=== PATIENT | female | born 1930 | race Hispanic/Latino ===

== ENCOUNTER → 2017-09-12 | Outpatient (CLI) | payer MEDICARE ==
[~2017-09-12] MED LIST: ASPI-1197 PO; CETI10TA57 PO; CILO50TA PO; CLOP75TA14 PO; FLUT12AE IH; FLUT15.88 NS; INHALER IH; LINA1TAB5 PO; MONT10TA24 PO; OLME1TAB7 PO; OLOP5DRO14 NS; PANT40TA PO; PRAV10TA39 PO; TRAM50TA4 PO
== END | disposition home or self-care (01) ==
LOC: SHCH 08:54
PROVIDERS: ATTEND Internal Medicine Cardiovascular Disease
DX: I71.4 Abdominal aortic aneurysm, without rupture (principal)
CPT/HCPCS: 93978

== ENCOUNTER → 2017-10-01 | Outpatient (CLI) | payer MEDICARE ==
[~2017-10-01] MED LIST changes: +IOPAMIDOL-370 100 ML VIAL IV ONE; +ISOVUE-370 50ML VIAL IV ONE
== END ==
LOC: OIH 08:52
PROVIDERS: ATTEND Internal Medicine Cardiovascular Disease
DX: I71.4 Abdominal aortic aneurysm, without rupture (principal); I70.203 Unspecified atherosclerosis of native arteries of extremities, bilateral legs
CPT/HCPCS: 75635; Q9967 ×2

== ENCOUNTER 2018-01-03 10:04 | Emergency (ER) | payer MEDICARE ==
[~2018-01-03 10:04] MED LIST changes: -IOPAMIDOL-370 100 ML VIAL IV ONE; -ISOVUE-370 50ML VIAL IV ONE
[2018-01-03 10:33] LABS: BASOPHILS % (AUTO) 0.8 % (0.0-5.0); EOSINOPHILS % (AUTO) 2.2 % (0.0-8.0); HEMATOCRIT 36.6 % (36-48); MEAN CORPUSCULAR HGB CONC 34.4 g/dL (32.0-36.0); MONOCYTES % (AUTO) 7.6 % (3.0-13.0); NEUTROPHILS % (AUTO) 70.4 % (40.0-77.0); PLATELET COUNT (AUTO) 229 K/uL (130-400); RED BLOOD CELL COUNT(AUTO) 3.94 MIL/uL (4.00-5.50); RED CELL DISTRIBUTION WIDTH 13.8 % (11.0-15.5); WHITE BLOOD COUNT (AUTO) 8.2 K/uL (4.8-10.8)
[2018-01-03 10:33] LABS: APPEARANCE,URINE Clear (CLEAR); BILIRUBIN,URINE Negative (NEGATIVE); COLOR,URINE Yellow (YELLOW); GLUCOSE, URINE (UA) >=1000 mg/dL (NEGATIVE); KETONES,URINE Negative (NEGATIVE); LEUKOCYTE ESTERASE ,URINE Negative (NEGATIVE); NITRATE,URINE Negative (NEGATIVE); OCCULT BLOOD,URINE Negative (NEGATIVE); PH,URINE 5.5 (5.0-8.0); PROTEIN,URINE Negative (NEGATIVE); UROBILINOGEN,URINE 0.2 mg/dL (0.2-1.0)
[2018-01-03] MEDS ORDERED: SODIUM CHLORIDE 0.9% 1000ML 1,000 ML IV ONE (10:35)
[2018-01-03 10:49] LABS: ALBUMIN 3.6 g/dL (3.5-5.0); BILIRUBIN,TOTAL 0.5 mg/dL (0.2-1.0); CREATININE 1.5 mg/dL (0.5-1.5); POTASSIUM 4.3 mmol/L (3.5-5.1); TOTAL PROTEIN, SERUM 7.7 g/dL (6.0-8.3)
[2018-01-03 10:55] LABS: BACTERIA,URINE Rare /HPF (None Seen); RBC,URINE 0-1 /HPF (0-1); SQUAMOUS EPITHELIAL CELL,UR Rare /HPF (0-2); WBC,URINE 0-1 /HPF (0-1)
[2018-01-03] MEDS ORDERED: INSULIN HUMULIN R 100 UNIT/ML 3ML ONE (11:12)
[2018-01-03] MEDS ORDERED: ACETAMINOPHEN 325 MG TAB ONE (13:27)
== END 2018-01-03 14:09 | disposition home or self-care (01) ==
LOC: EDH 10:04
DX: E11.65 Type 2 diabetes mellitus with hyperglycemia (principal); E78.5 Hyperlipidemia, unspecified; I10 Essential (primary) hypertension; Z88.6 Allergy status to analgesic agent
CPT/HCPCS: 36415; 80053; 81001; 82948; 85025; 96361; 96374; 99284; J1815; J7030

== ENCOUNTER 2018-01-09 14:46 | Emergency (ER) | payer MEDICARE ==
[2018-01-09 15:34] LABS: BASOPHILS % (AUTO) 0.9 % (0.0-5.0); EOSINOPHILS % (AUTO) 1.3 % (0.0-8.0); HEMATOCRIT 36.3 % (36-48); LYMPHOCYTES % (AUTO) 18.4 % (21.0-51.0); MEAN CORPUSCULAR HEMOGLOBIN 31.7 pg (27.0-33.0); MEAN CORPUSCULAR HGB CONC 34.2 g/dL (32.0-36.0); MEAN CORPUSCULAR VOLUME 92.5 fL (79-99); NEUTROPHILS % (AUTO) 73.4 % (40.0-77.0); PLATELET COUNT (AUTO) 239 K/uL (130-400); RED BLOOD CELL COUNT(AUTO) 3.92 MIL/uL (4.00-5.50); RED CELL DISTRIBUTION WIDTH 13.3 % (11.0-15.5); WHITE BLOOD COUNT (AUTO) 8.3 K/uL (4.8-10.8)
[2018-01-09] MEDS ORDERED: SODIUM CHLORIDE 0.9% 500ML 500 ML IV ONE (15:34)
[2018-01-09] MEDS ORDERED: INSULIN HUMULIN R 100 UNIT/ML 3ML ONE (15:35)
[2018-01-09 15:53] LABS: ALBUMIN 3.5 g/dL (3.5-5.0); BILIRUBIN,TOTAL 0.4 mg/dL (0.2-1.0); CREATINE KINASE MB 0.8 ng/mL (0.5-3.6); CREATININE 1.7 mg/dL (0.5-1.5); POTASSIUM 4.8 mmol/L (3.5-5.1); TOTAL PROTEIN, SERUM 7.4 g/dL (6.0-8.3)
[2018-01-09] MEDS ORDERED: ACETAMINOPHEN 325 MG TAB ONE (16:10)
[2018-01-09 17:04] LABS: APPEARANCE,URINE Clear (CLEAR); BILIRUBIN,URINE Negative (NEGATIVE); COLOR,URINE Yellow (YELLOW); GLUCOSE, URINE (UA) >=1000 mg/dL (NEGATIVE); KETONES,URINE Negative (NEGATIVE); LEUKOCYTE ESTERASE ,URINE Negative (NEGATIVE); NITRATE,URINE Negative (NEGATIVE); OCCULT BLOOD,URINE Negative (NEGATIVE); PROTEIN,URINE Negative (NEGATIVE); UROBILINOGEN,URINE 0.2 mg/dL (0.2-1.0)
[2018-01-09 17:13] LABS: BACTERIA,URINE Many /HPF (None Seen); RBC,URINE None Seen /HPF (0-1); WBC,URINE 0-1 /HPF (0-1)
[2018-01-09] MEDS ORDERED: PENICILLIN V POTASSIUM 500 MG TABLET ONE (17:36)
== END 2018-01-09 18:41 | disposition home or self-care (01) ==
LOC: EDH 14:46
DX: E11.65 Type 2 diabetes mellitus with hyperglycemia (principal); K05.00 Acute gingivitis, plaque induced; E78.5 Hyperlipidemia, unspecified; I10 Essential (primary) hypertension; Z88.6 Allergy status to analgesic agent
CPT/HCPCS: 36415; 80053; 81001; 82550; 82553; 82948 ×2; 84484; 85025; 85651; 86140; 93005; 96361; 96374; 99285; J1815; J7040

== ENCOUNTER 2018-04-09 19:59 | Emergency (ER) | payer MEDICARE ==
[2018-04-09] MEDS ORDERED: TETANUS/DIPHTHERIA TOXOID [ADULT] 0.5 ML VIAL IM ONE (21:28)
== END 2018-04-09 21:41 | disposition home or self-care (01) ==
LOC: EDH 19:59
DX: S61.216A Laceration without foreign body of right little finger without damage to nail, initial encounter (principal); E11.9 Type 2 diabetes mellitus without complications; E78.5 Hyperlipidemia, unspecified; I10 Essential (primary) hypertension; Z90.49 Acquired absence of other specified parts of digestive tract; Z90.710 Acquired absence of both cervix and uterus; Z98.890 Other specified postprocedural states; Z88.6 Allergy status to analgesic agent; X50.9XXA Other and unspecified overexertion or strenuous movements or postures, initial encounter; Y93.89 Activity, other specified; Y92.89 Other specified places as the place of occurrence of the external cause; Y99.8 Other external cause status
CPT/HCPCS: 73140; 90471; 90714; 99281

== ENCOUNTER → 2018-08-15 | Outpatient (CLI) | payer MEDICARE | END | disposition home or self-care (01) | LOC: SHCH 08:47 | PROVIDERS: ATTEND Internal Medicine Cardiovascular Disease | DX: I71.4 Abdominal aortic aneurysm, without rupture (principal) | CPT/HCPCS: 93978 ==

== ENCOUNTER → 2018-08-21 | Outpatient (CLI) | payer MEDICARE | END | disposition home or self-care (01) | LOC: SHCH 09:02 | PROVIDERS: ATTEND Internal Medicine Cardiovascular Disease | DX: I87.2 Venous insufficiency (chronic) (peripheral) (principal); I73.9 Peripheral vascular disease, unspecified; R60.9 Edema, unspecified | CPT/HCPCS: 93925; 93970 ==

== ENCOUNTER 2018-08-29 14:39 | Emergency (ER) | payer MEDICARE ==
[2018-08-29 15:35] LABS: BASOPHILS % (AUTO) 1.1 % (0.0-5.0); HEMATOCRIT 35.3 % (36-48); LYMPHOCYTES % (AUTO) 18.7 % (21.0-51.0); MEAN CORPUSCULAR HEMOGLOBIN 31.1 pg (27.0-33.0); MEAN CORPUSCULAR VOLUME 94.2 fL (79-99); MONOCYTES % (AUTO) 6.7 % (3.0-13.0); NEUTROPHILS % (AUTO) 70.5 % (40.0-77.0); PLATELET COUNT (AUTO) 207 K/uL (130-400); RED BLOOD CELL COUNT(AUTO) 3.75 MIL/uL (4.00-5.50); RED CELL DISTRIBUTION WIDTH 13.3 % (11.0-15.5); WHITE BLOOD COUNT (AUTO) 7.1 K/uL (4.8-10.8)
[2018-08-29 15:43] LABS: CREATININE 1.7 mg/dL (0.5-1.5); POTASSIUM 4.5 mmol/L (3.5-5.1)
[2018-08-29] MEDS ORDERED: ONDANSETRON HCL 4 MG/2 ML VIAL ONE (15:45)
[2018-08-29] MEDS ORDERED: SODIUM CHLORIDE 0.9% 1000ML 1,000 ML IV ONE (15:45)
[2018-08-29] MEDS ORDERED: MORPHINE SULFATE 4 MG/1ML SYG ONE (15:46)
[2018-08-29 15:48] LABS: ALBUMIN 3.4 g/dL (3.5-5.0); BILIRUBIN,TOTAL 0.5 mg/dL (0.2-1.0); TOTAL PROTEIN, SERUM 7.4 g/dL (6.0-8.3)
[2018-08-29] MEDS ORDERED: CYCLOBENZAPRINE HCL 10 MG TABLET ONE (16:25)
[2018-08-29 17:21] LABS: APPEARANCE,URINE Clear (CLEAR); BILIRUBIN,URINE Negative (NEGATIVE); COLOR,URINE Yellow (YELLOW); GLUCOSE, URINE (UA) TRACE mg/dL (NEGATIVE); KETONES,URINE Negative (NEGATIVE); LEUKOCYTE ESTERASE ,URINE Moderate (NEGATIVE); NITRATE,URINE Negative (NEGATIVE); OCCULT BLOOD,URINE Negative (NEGATIVE); PH,URINE 6.5 (5.0-8.0); PROTEIN,URINE Negative (NEGATIVE); UROBILINOGEN,URINE 0.2 mg/dL (0.2-1.0)
[2018-08-29 17:42] LABS: RBC,URINE 0-1 /HPF (0-1); WBC,URINE 26-50 /HPF (0-1)
[2018-08-29 17:43] LABS: BACTERIA,URINE Moderate /HPF (None Seen); SQUAMOUS EPITHELIAL CELL,UR Rare /HPF (0-2)
== END 2018-08-29 17:55 | disposition home or self-care (01) ==
LOC: EDH 14:39
DX: M62.838 Other muscle spasm (principal); I12.9 Hypertensive chronic kidney disease with stage 1 through stage 4 chronic kidney disease, or unspecified chronic kidney disease; E11.22 Type 2 diabetes mellitus with diabetic chronic kidney disease; N18.9 Chronic kidney disease, unspecified; E78.5 Hyperlipidemia, unspecified; Z87.891 Personal history of nicotine dependence
CPT/HCPCS: 36415; 76775; 80053; 81001; 82550; 85025; 85378; 93005; 93925; 93970; 96374; 96375; 99284; J2270; J2405; J7030

== ENCOUNTER 2018-11-25 19:35 | Emergency (ER) | payer MEDICARE ==
[~2018-11-25 19:35] MED LIST changes: +SODIUM CHLORIDE 0.9% 500ML 500 ML IV ONE
[2018-11-25 20:40] LABS: BASOPHILS % (AUTO) 0.5 % (0.0-5.0); EOSINOPHILS % (AUTO) 1.7 % (0.0-8.0); HEMATOCRIT 37.5 % (36-48); LYMPHOCYTES % (AUTO) 13.3 % (21.0-51.0); MEAN CORPUSCULAR HGB CONC 33.8 g/dL (32.0-36.0); MEAN CORPUSCULAR VOLUME 94.5 fL (79-99); MONOCYTES % (AUTO) 4.8 % (3.0-13.0); NEUTROPHILS % (AUTO) 79.7 % (40.0-77.0); PLATELET COUNT (AUTO) 202 K/uL (130-400); RED BLOOD CELL COUNT(AUTO) 3.97 MIL/uL (4.00-5.50); RED CELL DISTRIBUTION WIDTH 13.7 % (11.0-15.5); WHITE BLOOD COUNT (AUTO) 13.6 K/uL (4.8-10.8)
[2018-11-25 20:57] LABS: CREATININE 1.6 mg/dL (0.5-1.5); POTASSIUM 4.3 mmol/L (3.5-5.1)
[2018-11-25 21:01] LABS: ALBUMIN 3.5 g/dL (3.5-5.0); BILIRUBIN,TOTAL 0.5 mg/dL (0.2-1.0); TOTAL PROTEIN, SERUM 7.7 g/dL (6.0-8.3)
[2018-11-25 21:06] LABS: B-TYPE NATRIURETIC PEPTIDE 14 pg/mL (0-100)
[2018-11-25 21:21] LABS: APPEARANCE,URINE Clear (CLEAR); BILIRUBIN,URINE Negative (NEGATIVE); COLOR,URINE Yellow (YELLOW); GLUCOSE, URINE (UA) 500 mg/dL (NEGATIVE); KETONES,URINE Negative (NEGATIVE); LEUKOCYTE ESTERASE ,URINE Small (NEGATIVE); NITRATE,URINE Negative (NEGATIVE); OCCULT BLOOD,URINE Negative (NEGATIVE); PH,URINE 5.5 (5.0-8.0); PROTEIN,URINE Negative (NEGATIVE); UROBILINOGEN,URINE 0.2 mg/dL (0.2-1.0)
[2018-11-25 21:31] LABS: BACTERIA,URINE Moderate /HPF (None Seen); RBC,URINE 0-1 /HPF (0-1)
[2018-11-25 21:32] LABS: SQUAMOUS EPITHELIAL CELL,UR Rare /HPF (0-2)
[2018-11-25] MEDS ORDERED: SODIUM CHLORIDE 0.9% 1000ML 1,000 ML IV ONE (22:50)
[2018-11-25] MEDS ORDERED: CEFTRIAXONE SODIUM 1 GM ONE (22:51)
== END 2018-11-26 | disposition home or self-care (01) ==
LOC: EDH 19:35
DX: N39.0 Urinary tract infection, site not specified (principal); I71.4 Abdominal aortic aneurysm, without rupture; E11.65 Type 2 diabetes mellitus with hyperglycemia; E78.5 Hyperlipidemia, unspecified; I10 Essential (primary) hypertension; Z88.6 Allergy status to analgesic agent; Z88.1 Allergy status to other antibiotic agents
CPT/HCPCS: 36415; 71045; 74176; 80053; 81001; 82150; 82550; 83690; 83880; 84484; 85025; 87040 ×2; 87077 ×2; 87088; 87186 ×2; 87804 ×2; 93005; 96374; 99285; J0696; J7030; J7040

== ENCOUNTER 2018-12-25 17:24 | Inpatient (IN) | payer MEDICARE | END 2018-12-28 15:00 | disposition home health service (06) | LOC: EDH 17:24 → 4AH 12-26 07:42 → EDHIP 19:40 → 3DH 23:08 | DX: S82.001A Unspecified fracture of right patella, initial encounter for closed fracture (principal); W01.0XXA Fall on same level from slipping, tripping and stumbling without subsequent striking against object, initial encounter; N18.9 Chronic kidney disease, unspecified; E11.22 Type 2 diabetes mellitus with diabetic chronic kidney disease ==

== ENCOUNTER 2019-02-27 14:00 | Observation (INO) | payer MEDICARE ==
[~2019-02-27] VITALS: Ht 147.3 cm; Wt 55.7 kg
[~2019-02-27 14:00] MED LIST changes: +ALBU0.63 IH; +ALBUHFA IH; -CETI10TA57 PO; -CILO50TA PO; -CLOP75TA14 PO; +CLOP75TA32 PO; +CYCL30DR OU; -FLUT12AE IH; -FLUT15.88 NS; +FLUT16H NASAL; +FLUT8AER2 IH; -INHALER IH; +INSU300I3 SQ; -LINA1TAB5 PO; -MONT10TA24 PO; +MULT-1192 PO; -OLME1TAB7 PO; -OLOP5DRO14 NS; -PANT40TA PO; -SODIUM CHLORIDE 0.9% 500ML 500 ML IV ONE
[2019-02-27 15:53] LABS: BASOPHILS % (AUTO) 1.4 % (0.0-5.0); EOSINOPHILS % (AUTO) 2.3 % (0.0-8.0); HEMATOCRIT 39.4 % (36-48); MEAN CORPUSCULAR HEMOGLOBIN 30.5 pg (27.0-33.0); MEAN CORPUSCULAR VOLUME 95.3 fL (79-99); MONOCYTES % (AUTO) 6.5 % (3.0-13.0); NEUTROPHILS % (AUTO) 69.8 % (40.0-77.0); PLATELET COUNT (AUTO) 258 K/uL (130-400); RED BLOOD CELL COUNT(AUTO) 4.14 MIL/uL (4.00-5.50); RED CELL DISTRIBUTION WIDTH 13.5 % (11.0-15.5); WHITE BLOOD COUNT (AUTO) 9.1 K/uL (4.8-10.8)
[2019-02-27 15:59] LABS: CREATININE 1.2 mg/dL (0.5-1.5); POTASSIUM 4.5 mmol/L (3.5-5.1)
[2019-02-27 16:48] VITALS: BP 155/71
[2019-02-27] MEDS ORDERED: AMLO5TAB5 PO (17:00)
[2019-02-27] MEDS ORDERED: CETI10CA5 PO (17:00)
[2019-02-27] MEDS ORDERED: OLME1TAB7 PO (17:00)
[2019-02-27] MEDS ORDERED: MONT10TA21 PO (17:00)
[2019-02-27] MEDS ORDERED: PLETAL PO (17:00)
[2019-02-27] MEDS ORDERED: PANT40TA PO (17:00)
[2019-02-27] MEDS ORDERED: ALBU8.5H8 IH (17:00)
[2019-02-27] MEDS ORDERED: CALC-909 PO (17:00)
--- NOTE | 2019-02-27 17:00 | NUR ---
EKG INFORMED DR. VILLEGAS OF ABNORMAL EKG. NO ORDERS RECEIVED. PROCEED WITH PLANNED PROCEDURE.
[2019-02-28] VITALS (22 sets, daily range): BP systolic 95–146; BP diastolic 53–81
[2019-02-28] MEDS ORDERED: CEFAZOLIN SODIUM 1 GM VIAL IVP ONE (08:00)
[2019-02-28] MEDS ORDERED: SODIUM CHLORIDE 0.9% 1000ML 1,000 ML IV ONE (09:57)
[2019-02-28] MEDS ORDERED: CEFAZOLIN SODIUM 1 GM VIAL ONE ×2 (09:57→12:15)
[2019-02-28] MEDS ORDERED: ROPIVACAINE 0.5% 5MG/ML 30ML IJ ONE ×2 (11:17→11:22)
[2019-02-28] MEDS ORDERED: SUCCINYLCHOLINE 200MG/10ML SYR ONE (11:17)
[2019-02-28] MEDS ORDERED: LIDOCAINE PF 2% 5ML ABBOJECT ONE (11:17)
[2019-02-28] MEDS ORDERED: PROPOFOL 10 MG/ML 20ML VIAL IV ONE (11:18)
[2019-02-28] MEDS ORDERED: FENTANYL CITRATE PF 50 MCG/1 ML 2ML VIAL ONE (11:18)
[2019-02-28] MEDS ORDERED: ROCURONIUM 10MG/1ML SYR 10 MG/ML ML ONE (11:18)
[2019-02-28] MEDS ORDERED: SODIUM CHLORIDE 0.9% 10 ML VIAL ONE (11:59)
[2019-02-28] MEDS ORDERED: PHENYLEPHRINE HCL 10 MG/ML 1ML VIAL IV ONE (12:19)
[2019-02-28] MEDS ORDERED: NEOSTIGMINE 5MG/5ML SYR IV ONE (13:41)
[2019-02-28] MEDS ORDERED: GLYCOPYRROLATE 1 MG/5 ML SYRINGE ONE (13:41)
[2019-02-28] MEDS ORDERED: KETOROLAC TROMETHAMINE 30MG/ML ONE (13:42)
[2019-02-28] MEDS ORDERED: ONDANSETRON HCL 4 MG/2 ML VIAL ONE (13:42)
[2019-02-28] MEDS ORDERED: POTASSIUM CHLORIDE 20MEQ/100ML 100 ML IV PRN (14:15)
[2019-02-28] MEDS ORDERED: KETOROLAC TROMETHAMINE 15MG/ML IV PRN (14:15)
[2019-02-28] MEDS ORDERED: PROMETHAZINE HCL 25 MG/ML 1ML AMPULE IM PRN (14:15)
[2019-02-28] MEDS ORDERED: LIDOCAINE HCL-MPF 1% 2ML VIAL IVP PRN (14:15)
[2019-02-28] MEDS ORDERED: DIPHENHYDRAMINE HCL 25 MG CAPSULE PO PRN (14:15)
[2019-02-28] MEDS ORDERED: POTASSIUM CHLORIDE 10% ELIXIR 20 MEQ/15 ML UDCUP PO PRN (14:15)
[2019-02-28] MEDS ORDERED: CALCIUM CARBONATE 500 MG TABLET PO PRN (14:15)
[2019-02-28] MEDS ORDERED: HYDROCODONE/ACETAMINOPHEN 5/325 MG TAB PO PRN ×2 (14:15)
[2019-02-28] MEDS ORDERED: POTASSIUM CHLORIDE 20 MEQ ERTAB PO PRN (14:15)
[2019-02-28] MEDS ORDERED: TEMAZEPAM 15 MG CAPSULE PO PRN (14:15)
[2019-02-28] MEDS ORDERED: FERROUS FUMARATE 324 MG TABLET PO PRN (14:15)
[2019-02-28] MEDS ORDERED: DiphenhydrAMINE HCL 50 MG/ML VIAL IVP PRN (14:15)
[2019-02-28] MEDS: SODIUM CHLORIDE 0.9% 1000ML 1,000 ML IV SCH ×2 (20:13→23:25)
[2019-02-28] MEDS: CEFAZOLIN SODIUM 1 GM VIAL IVP SCH (20:13)
[2019-02-28] MEDS ORDERED: SUB TO ALBUTEROL 2.5MG/3ML NEBULES PER P&T IH PRN (20:45)
[2019-02-28] MEDS ORDERED: ASPIRIN 81MG TAB.CHEW PO SCH (21:00)
[2019-02-28] MEDS ORDERED: MONTELUKAST SODIUM 10 MG TAB PO SCH (21:00)
[2019-03-01 04:00] VITALS: BP 134/59
[2019-03-01] MEDS: CEFAZOLIN SODIUM 1 GM VIAL IVP SCH ×2 (04:36→11:49)
[2019-03-01 05:07] LABS: HEMATOCRIT 30.7 % (36-48); MEAN CORPUSCULAR HGB CONC 33.3 g/dL (32.0-36.0); PLATELET COUNT (AUTO) 210 K/uL (130-400); RED CELL DISTRIBUTION WIDTH 13.5 % (11.0-15.5); WHITE BLOOD COUNT (AUTO) 12.7 K/uL (4.8-10.8)
[2019-03-01 05:14] LABS: CREATININE 1.1 mg/dL (0.5-1.5); POTASSIUM 4.1 mmol/L (3.5-5.1)
[2019-03-01] MEDS ORDERED: ALBUTEROL SULFATE 0.083% 2.5 MG/3 ML INH IH PRN (06:00)
[2019-03-01 08:00] VITALS: BP 119/46
[2019-03-01] MEDS ORDERED: CLOPIDOGREL BISULFATE 75 MG TAB PO SCH (09:00)
[2019-03-01] MEDS ORDERED: CALCIUM 600 + VITAMIN D 400 TABLET PO SCH (09:00)
[2019-03-01] MEDS ORDERED: VENTOLIN HFA IH PRN (09:00)
[2019-03-01] MEDS ORDERED: INSULIN GLARGINE 100 UNITS/ML 10 ML VIAL SQ SCH (09:00)
[2019-03-01] MEDS ORDERED: AMLODIPINE BESYLATE 5 MG TAB PO SCH (09:00)
[2019-03-01] MEDS ORDERED: PANTOPRAZOLE SODIUM 40 MG TABLET.DR PO SCH (09:00)
[2019-03-01] MEDS ORDERED: POLYETHYLENE GLYCOL 3350 17 GM POWD.PACK PO SCH (09:00)
[2019-03-01] MEDS ORDERED: FLUTICASONE PROPIONATE 50MCG/SPRAY 16 GM BOTTLE NS SCH (09:00)
[2019-03-01] MEDS ORDERED: SALMETEROL IH SCH (09:00)
[2019-03-01] MEDS ORDERED: OLMESARTAN PO SCH (09:00)
[2019-03-01] MEDS ORDERED: FAMOTIDINE 20MG TAB 20 MG TAB PO SCH (09:00)
[2019-03-01] MEDS ORDERED: CILOSTAZOL 50 MG PO SCH (09:00)
[2019-03-01] MEDS ORDERED: Cyclosporine (Restasis) 1 EACH OU SCH (09:00)
[2019-03-01] MEDS ORDERED: FLUTICASONE IH SCH (09:00)
[2019-03-01] MEDS ORDERED: HYDROCHLOROTHIAZIDE PO SCH (09:00)
[2019-03-01] MEDS ORDERED: HYDR-4457 PO (11:26)
[2019-03-01 12:00] VITALS: BP 131/56
[2019-03-01] MEDS ORDERED: PSYLLIUM SEED 1 EACH PACKET PO SCH (12:00)
--- NOTE | 2019-03-01 16:30 | NUR ---
PT D/C WITH TEACH BACK SUCCESSFULLY TO PATIENT AND DAUGHTER DRESSING CHANGE DONE MINIMAL DRAINAGE SOME MINIMAL SWELLING NOTED NO SIGNS OF ACTIVE BLEEDING NOTED NO SIGNS OF INFECTION NOTED "REMOVE ON 03/04/19" WRITTEN ON DRESSING ORDERED BYDR. MALDONADO IV REMOVED, CATHETER INTACT , TIP INTACT PT DENIES SOB OR CHEST PAIN RX GIVEN COPY OF ALL D/C ORDERS BY DR. MALDONADO GIVEN TO PT'S DAUGHTER PT AND FAMILY INSTRUCTED TO CALL SUNDAY FOR FU APPT 03/04/19
[2019-03-01] MEDS ORDERED: Pravastatin Sodium 10 MG PO SCH (21:00)
[2019-03-02] MEDS ORDERED: BISACODYL 5 MG TABLET.DR PO PRN (14:15)
[2019-03-03] MEDS ORDERED: BISACODYL 10 MG SUPP.RECT RC PRN (14:15)
== END 2019-03-01 17:17 | disposition home or self-care (01) ==
LOC: EDSTATUS 14:00 → INTOOBSV 02-28 08:52 → DAHIP 02-28 08:52 → 4AH 02-28 15:54
PROVIDERS: ADMIT Orthopaedic Surgery; ATTEND Orthopaedic Surgery
DX: S86.891D Other injury of other muscle(s) and tendon(s) at lower leg level, right leg, subsequent encounter (principal); I10 Essential (primary) hypertension; E78.5 Hyperlipidemia, unspecified; E11.9 Type 2 diabetes mellitus without complications; K21.9 Gastro-esophageal reflux disease without esophagitis; Z47.89 Encounter for other orthopedic aftercare; Z87.81 Personal history of (healed) traumatic fracture; Z88.5 Allergy status to narcotic agent; Z88.8 Allergy status to other drugs, medicaments and biological substances; Z90.710 Acquired absence of both cervix and uterus; Z95.5 Presence of coronary angioplasty implant and graft; Z87.891 Personal history of nicotine dependence; Z79.899 Other long term (current) drug therapy; X58.XXXD Exposure to other specified factors, subsequent encounter
CPT/HCPCS: 27381; 36415 ×2; 80048 ×2; 82948 ×5; 85025; 85027; 93005; 94640; 94664; 96374; 96375; 96376; 97039 ×2; 97116; 97161; A4344; A4600; A4649 ×4; A4930 ×2; A6223; C1762; G0168; G0378 ×31; G8978; G8979; G8980 ×2; G8981; G8982; G8983 ×2; J0330; J0690 ×5; J1885 ×2; J2001; J2370; J2405; J2704; J2710; J2795 ×2; J3010; J3490; J7030 ×2; L1830

== ENCOUNTER 2019-04-22 19:26 | Emergency (ER) | payer MEDICARE ==
[~2019-04-22 19:26] MED LIST changes: +ALBU8.5H8 IH; +AMLO5TAB5 PO; +CALC-909 PO; +CETI10CA5 PO; +HYDR-4457 PO; +MONT10TA21 PO; +OLME1TAB7 PO; +PANT40TA PO; +PLETAL PO
[2019-04-22] MEDS ORDERED: DiphenhydrAMINE HCL 50 MG/ML VIAL ONE (20:34)
[2019-04-22] MEDS ORDERED: DEXAMETHASONE SOD PHOSPHATE 10MG/ML 1ML VIAL ONE (20:34)
[2019-04-22 20:56] LABS: BASOPHILS % (AUTO) 1.1 % (0.0-5.0); EOSINOPHILS % (AUTO) 2.2 % (0.0-8.0); HEMATOCRIT 36.5 % (36-48); LYMPHOCYTES % (AUTO) 20.3 % (21.0-51.0); MEAN CORPUSCULAR HEMOGLOBIN 31.2 pg (27.0-33.0); MEAN CORPUSCULAR HGB CONC 34.2 g/dL (32.0-36.0); MEAN CORPUSCULAR VOLUME 91.4 fL (79-99); MONOCYTES % (AUTO) 8.7 % (3.0-13.0); NEUTROPHILS % (AUTO) 67.7 % (40.0-77.0); PLATELET COUNT (AUTO) 243 K/uL (130-400); RED BLOOD CELL COUNT(AUTO) 3.99 MIL/uL (4.00-5.50); WHITE BLOOD COUNT (AUTO) 9.8 K/uL (4.8-10.8)
[2019-04-22 20:56] LABS: APPEARANCE,URINE Clear (CLEAR); BILIRUBIN,URINE Negative (NEGATIVE); COLOR,URINE Dark Yellow (YELLOW); GLUCOSE, URINE (UA) 250 mg/dL (NEGATIVE); KETONES,URINE Negative (NEGATIVE); LEUKOCYTE ESTERASE ,URINE Trace (NEGATIVE); NITRATE,URINE Negative (NEGATIVE); OCCULT BLOOD,URINE Negative (NEGATIVE); PH,URINE 6.5 (5.0-8.0); PROTEIN,URINE Negative (NEGATIVE)
[2019-04-22 21:08] LABS: CREATININE 1.2 mg/dL (0.5-1.5); POTASSIUM 3.9 mmol/L (3.5-5.1)
[2019-04-22 21:09] LABS: INR 0.93 (0.85-1.15); PROTHROMBIN TIME 9.8 SEC (9.6-11.6)
[2019-04-22 21:13] LABS: ALBUMIN 3.2 g/dL (3.5-5.0); BILIRUBIN,DIRECT 1.2 mg/dL (0.0-0.3); BILIRUBIN,TOTAL 1.6 mg/dL (0.2-1.0); TOTAL PROTEIN, SERUM 7.5 g/dL (6.0-8.3)
[2019-04-22 21:17] LABS: RBC,URINE 0-1 /HPF (0-1)
[2019-04-22 21:18] LABS: BACTERIA,URINE Rare /HPF (None Seen); SQUAMOUS EPITHELIAL CELL,UR Rare /HPF (0-2)
== END 2019-04-22 23:45 | disposition home or self-care (01) ==
LOC: EDH 19:26
DX: R10.84 Generalized abdominal pain (principal); R21 Rash and other nonspecific skin eruption; I10 Essential (primary) hypertension; E78.5 Hyperlipidemia, unspecified; E11.9 Type 2 diabetes mellitus without complications; Z88.1 Allergy status to other antibiotic agents; Z88.5 Allergy status to narcotic agent
CPT/HCPCS: 36415; 74176; 76705; 80048; 80076; 81001; 82550; 83690; 84484; 85025; 85610; 85730; 93005; 96374; 96375; 99285; J1100; J1200

== ENCOUNTER 2020-02-16 11:14 | Inpatient (IN) | payer MEDICARE ==
[~2020-02-16] VITALS: Ht 149.9 cm; Wt 60.3 kg
[2020-02-16] MEDS ORDERED: CEFTRIAXONE SODIUM 1 GM ONE (11:54)
[2020-02-16 12:34] LABS: BASOPHILS % (AUTO) 0.3 % (0.0-5.0); EOSINOPHILS % (AUTO) 0.4 % (0.0-8.0); HEMATOCRIT 35.8 % (36-48); LYMPHOCYTES % (AUTO) 13.8 % (21.0-51.0); MEAN CORPUSCULAR HEMOGLOBIN 29.8 pg (27.0-33.0); MEAN CORPUSCULAR HGB CONC 33.2 g/dL (32.0-36.0); MEAN CORPUSCULAR VOLUME 89.7 fL (79-99); MONOCYTES % (AUTO) 6.3 % (3.0-13.0); NEUTROPHILS % (AUTO) 78.9 % (40.0-77.0); PLATELET COUNT (AUTO) 131 K/uL (130-400); RED BLOOD CELL COUNT(AUTO) 3.99 MIL/uL (4.00-5.50); RED CELL DISTRIBUTION WIDTH 13.4 % (11.0-15.5)
[2020-02-16 12:40] LABS: INR 0.88 (0.85-1.15); PARTIAL THROMBOPLASTIN TIME 28.9 SEC (26.3-35.5); PROTHROMBIN TIME 9.6 SEC (9.6-11.6)
[2020-02-16 12:47] LABS: CARBON DIOXIDE 25 mmol/L (21-32); CHLORIDE 100 mmol/L (101-111); CREATININE 1.5 mg/dL (0.5-1.5); GLOMERULAR FILTR. RATE CALC 35 mL/min (>60); GLUCOSE,RANDOM 158 mg/dL (70-105); POTASSIUM 5.1 mmol/L (3.5-5.1); SODIUM SERUM 135 mmol/L (136-145); UREA NITROGEN, BLOOD 23 mg/dL (7-18)
[2020-02-16 13:00] LABS: ALANINE AMINOTRANSFERASE 137 U/L (12-78); ALBUMIN 2.9 g/dL (3.5-5.0); ASPARTATE AMINOTRANSFERASE 200 U/L (10-37); BILIRUBIN,TOTAL 0.5 mg/dL (0.2-1.0); CREATINE KINASE, TOTAL 111 U/L (21-232); MYOGLOBIN 181 ng/mL (10-92); TOTAL PROTEIN, SERUM 6.8 g/dL (6.0-8.3); TROPONIN I < 0.04 ng/mL (0.00-0.06)
[2020-02-16] MEDS ORDERED: DEXAMETHASONE SOD PHOSPHATE 4 MG/ML 1ML VIAL ONE (13:35)
[2020-02-16] MEDS ORDERED: ALBUTEROL INHALER 90MCG/INH IH ONE (13:37)
[2020-02-16] MEDS ORDERED: DIPHENHYDRAMINE HCL 25 MG CAPSULE PO PRN (14:00)
[2020-02-16] MEDS ORDERED: GLUCAGON 1MG KIT 1 MG ML IM PRN (14:00)
[2020-02-16] MEDS ORDERED: ACETAMINOPHEN-CODEINE 300/30MG TAB PO PRN (14:00)
[2020-02-16] MEDS ORDERED: ACETAMINOPHEN 325 MG TAB PO PRN (14:00)
[2020-02-16] MEDS: AZITHROMYCIN 500MG+NS 250ML 250 ML IV SCH (14:00)
[2020-02-16] MEDS ORDERED: LACTULOSE 20 GM/30 ML UDCUP PO PRN (14:00)
[2020-02-16] MEDS ORDERED: DEXTROSE 50%-WATER 50 ML DISP.SYRIN IV PRN (14:00)
[2020-02-16] MEDS ORDERED: ONDANSETRON HCL 4 MG/2 ML VIAL IV PRN (14:00)
[2020-02-16 14:03] LABS: APPEARANCE,URINE Clear (CLEAR); BILIRUBIN,URINE Negative (NEGATIVE); COLOR,URINE Dark Yellow (YELLOW); GLUCOSE, URINE (UA) Negative (NEGATIVE); KETONES,URINE Negative (NEGATIVE); LEUKOCYTE ESTERASE ,URINE Moderate (NEGATIVE); NITRATE,URINE Positive (NEGATIVE); OCCULT BLOOD,URINE Negative (NEGATIVE); PROTEIN,URINE Negative (NEGATIVE)
[2020-02-16 14:21] LABS: BACTERIA,URINE Few /HPF (None Seen); RBC,URINE 0-1 /HPF (0-1)
[2020-02-16 14:22] LABS: SQUAMOUS EPITHELIAL CELL,UR Few /HPF (0-2)
[2020-02-16] MEDS ORDERED: LEVOFLOXACIN 500 MG/D5W 100 ML 100 ML ONE (14:30)
[2020-02-16] MEDS: CEFTRIAXONE SODIUM 1 GM IV SCH (15:00)
[2020-02-16] MEDS ORDERED: AZITHROMYCIN 500MG+NS 250ML 250 ML IV ONE (15:24)
[2020-02-16] MEDS: INSULIN HUMULIN R 100 UNIT/ML 3ML SQ SCH ×2 (16:30→21:00)
[2020-02-16] MEDS: PHARMACY COMMUNICATION MISC SCH ×5 (16:30→23:08)
[2020-02-16] MEDS ORDERED: ENOXAPARIN SODIUM 60 MG/0.6 ML SQ SCH (18:00)
[2020-02-16 22:10] VITALS: BP 95/49
[2020-02-17] VITALS: BP 106/60
[2020-02-17] MEDS: PHARMACY COMMUNICATION MISC SCH ×4 (02:30→08:30)
[2020-02-17] MEDS: BENZONATATE 100 MG CAPSULE PO PRN (03:00)
[2020-02-17 04:00] VITALS: BP 107/57
[2020-02-17 04:33] LABS: HEMATOCRIT 36.6 % (36-48); MEAN CORPUSCULAR HEMOGLOBIN 29.4 pg (27.0-33.0); MEAN CORPUSCULAR HGB CONC 32.5 g/dL (32.0-36.0); MEAN CORPUSCULAR VOLUME 90.4 fL (79-99); RED BLOOD CELL COUNT(AUTO) 4.05 MIL/uL (4.00-5.50); RED CELL DISTRIBUTION WIDTH 13.3 % (11.0-15.5)
[2020-02-17 04:43] LABS: CREATININE 1.5 mg/dL (0.5-1.5); PHOSPHORUS 3.7 mg/dL (2.5-4.9); POTASSIUM 5.6 mmol/L (3.5-5.1)
[2020-02-17] MEDS: INSULIN HUMULIN R 100 UNIT/ML 3ML SQ SCH ×4 (05:43→20:32)
--- NOTE | 2020-02-17 06:24 | NUR ---
Pt rested throughout night following admission process; pt was SOB with exertion and while talking; bedside commode placed for pts convenience and pt placed on continuous pulse ox; pt sat between 98-100% on 3L O2 via nasal canula at rest however while trying to use bedside commode, pts sats dropped to the low 80s; pt educated on resting on edge of bed before attempting to stand and slow deep breaths encouraged; pt received Tesslon perles for cough; pt is currently resting in bed with eyes closed; no distress noted
[2020-02-17 07:00] VITALS: BP 133/59
[2020-02-17] MEDS: FAMOTIDINE/PF 20 MG/2 ML VIAL IV SCH (08:49)
[2020-02-17] MEDS: DEXAMETHASONE 4 MG TAB PO SCH (08:50)
[2020-02-17] MEDS ORDERED: ENOXAPARIN SODIUM 40 MG/0.4 ML SYRINGE SQ SCH (09:00)
[2020-02-17] MEDS ORDERED: LEVO5TAB13 PO (10:19)
--- NOTE | 2020-02-17 10:45 | NUR ---
POTASSIUM AND HOME MEDS Dylan SIFUENTES NP FOR DR. LR INFORMED OF POTASSIUM 5.6 AND THAT HOME MEDS ENTERED AND PENDING TO BE RESUMED.
[2020-02-17] MEDS: ENOXAPARIN SODIUM 60 MG/0.6 ML SQ SCH (10:50)
[2020-02-17 11:00] VITALS: BP_SYST 111; BP_SYST 124; BP_DIAS 54; BP_DIAS 61
--- NOTE | 2020-02-17 12:41 | NUR ---
CHART CHECK COMPLETED. Pt IS AN 89 Y.O. FEMALE ADMITTED SECONDARY TO COVID19. Pt HAS A PAST MEDICAL HISTORY SIGNIFICANT FOR DM, RA, ALLERGIES, CARDIAC. Pt CURRENTLY ON REGULAR TEXTURE, THIN LIQUIDS (CONSISTENT CARB). Pt ON 3L O2 NC. PLEASE REQUEST SKILLED SPEECH/SWALLOW EVALUATION IF Pt PRESENTS WITH +S/S OF ASPIRATION DURING P.O. OF COUGH RESPONSE, WET VOCAL QUALITY OR THROAT CLEAR. Addendum: 02/17/20 at 1245 by RENNY MARINA, SPT ST Amended: Links added.
[2020-02-17] MEDS: AZITHROMYCIN 500MG+NS 250ML 250 ML IV SCH (14:14)
[2020-02-17] MEDS: CEFTRIAXONE SODIUM 1 GM IV SCH (14:15)
--- NOTE | 2020-02-17 14:32 | NUR ---
RADHA NOTE/IA UNABLE TO MEET WITH PATIENT IN ROOM, NEXT OF KIN CALLED, GERSON RESENDEZ. PER DAUGHTER, PATIENT LIVES WITH HER AND SON, KARLY RESENDEZ. PER DAUGHTER, HER BROTHER, KARLY, LIVES IN THE HOME BUT DOES NOT KNOW TOO MUCH ABOUT PATIENT AND WOULD RATHER INFORMATION BE PASSED TO HER THAN BROTHER. ALSO STATES, PATIENT IS INDEPENDENT WITH ADLS, HAS USE OF ROLLATOR WALKER, NO PROVIDER SERVICES AND FEELS SAFE FOR PATIENT TO BE DISCHARGED BACK HOME. Addendum: 02/17/20 at 1440 by ROCIO ZARATE RN CM Amended: Links added.
[2020-02-17 16:00] VITALS: BP 133/60
[2020-02-17 17:16] LABS: ABG BASE EXCESS -1.8 mmol/L (-2.0-3.0); ABG HCO3 21.4 mmol/L (21.0-28.0); ABG OXYGEN SATURATION 87.5 % (95.0-99.0); ABG PCO2 33 mmHg (32-45)
[2020-02-17 20:20] VITALS: BP 114/63
[2020-02-18 00:20] VITALS: BP 118/56
[2020-02-18 04:20] VITALS: BP 111/49
[2020-02-18 04:24] LABS: BASOPHILS % (AUTO) 0.1 % (0.0-5.0); HEMATOCRIT 37.3 % (36-48); LYMPHOCYTES % (AUTO) 8.4 % (21.0-51.0); MEAN CORPUSCULAR HEMOGLOBIN 29.6 pg (27.0-33.0); MEAN CORPUSCULAR HGB CONC 33.2 g/dL (32.0-36.0); MONOCYTES % (AUTO) 6.5 % (3.0-13.0); NEUTROPHILS % (AUTO) 84.6 % (40.0-77.0); PLATELET COUNT (AUTO) 178 K/uL (130-400); RED BLOOD CELL COUNT(AUTO) 4.19 MIL/uL (4.00-5.50); RED CELL DISTRIBUTION WIDTH 13.2 % (11.0-15.5); WHITE BLOOD COUNT (AUTO) 9.6 K/uL (4.8-10.8)
[2020-02-18 04:41] LABS: ALBUMIN 2.7 g/dL (3.5-5.0); BILIRUBIN,TOTAL 0.7 mg/dL (0.2-1.0); CREATININE 1.3 mg/dL (0.5-1.5); MAGNESIUM 2.2 mg/dL (1.80-2.40); PHOSPHORUS 3.5 mg/dL (2.5-4.9); POTASSIUM 5.1 mmol/L (3.5-5.1); TOTAL PROTEIN, SERUM 6.8 g/dL (6.0-8.3)
[2020-02-18] MEDS: INSULIN HUMULIN R 100 UNIT/ML 3ML SQ SCH ×5 (05:40→20:58)
--- NOTE | 2020-02-18 06:14 | NUR ---
Pt rested throughout night after receiving night meds and a bed bath; pt woke to use bedside commode, O2 sats dropped to 77% and pt recovered back to 98-100% once back in bed and resting; pt is on 5L O2 via nasal cannula; lab called @0546 with pts D-Dimer result = [id number]; [employer] human [employer] professional physician paged at [phone]; pending response at this time. YADY Fraser
[2020-02-18 07:00] VITALS: BP 131/47
[2020-02-18] MEDS: FAMOTIDINE/PF 20 MG/2 ML VIAL IV SCH (09:03)
[2020-02-18] MEDS: ENOXAPARIN SODIUM 60 MG/0.6 ML SQ SCH (09:04)
[2020-02-18] MEDS: DEXAMETHASONE 4 MG TAB PO SCH (09:06)
[2020-02-18 11:00] VITALS: BP 113/64
[2020-02-18] MEDS: CEFTRIAXONE SODIUM 1 GM IV SCH (14:03)
[2020-02-18] MEDS: AZITHROMYCIN 500MG+NS 250ML 250 ML IV SCH (14:03)
[2020-02-18 16:00] VITALS: BP 117/67
[2020-02-18 20:12] VITALS: BP 120/59
--- NOTE | 2020-02-18 21:10 | NUR ---
pt requested to use bedside commode; pt de-sats to the 70s when attempting to use beside commode; pt resting in bed (@2030) and sats in mid-80s; pt stated she was on the phone with her daughter; O2 at 5L and increased to 8-9L without change; NRB placed/ 15L and pts sats at 98-99%; pt instructed to stay on bedrest; pts brief was changed and O2 reassessed, O2 sats maintaining 97-98% on NRB; pt placed back on nasal cannula at 7L and O2 sats maintaining at 91% at this time; no distress noted. Evelio, RN
--- NOTE | 2020-02-18 23:48 | NUR ---
Rounding on pt and pulse ox beeping, pts O2 sats at 84% on 7L nasal cannula and pt stating she feels SOB; O2 increased to 10L with no change; pt placed on NRB /15L and O2 sats maintaining at 95-96%; pts brief was changed and reassessed; no distress noted at this time. Evelio, RN
[2020-02-19 00:12] VITALS: BP 133/75
--- NOTE | 2020-02-19 01:10 | NUR ---
Pt satting 100% on NRB; RT rounded and stated pt could decrease to venti-mask at 50%; vent-mask applied at this time and pt is maintaining O2 sats at 94%; no distress noted at this time. Evelio, RN
--- NOTE | 2020-02-19 02:20 | NUR ---
Pt satting 100% on venti-mask @50% and 15L; decreased venti-mask at 35% and 9L, pt is maintaining O2 sats at 97%; no distress noted at this time. Evelio RN
[2020-02-19 03:54] LABS: ABG BASE EXCESS 1.1 mmol/L (-2.0-3.0); ABG HCO3 24.1 mmol/L (21.0-28.0); ABG OXYGEN SATURATION 90.3 % (95.0-99.0); ABG PCO2 34 mmHg (32-45)
[2020-02-19 04:12] VITALS: BP 128/68
[2020-02-19 04:54] LABS: BASOPHILS % (AUTO) 0.2 % (0.0-5.0); LYMPHOCYTES % (AUTO) 8.4 % (21.0-51.0); MEAN CORPUSCULAR HEMOGLOBIN 29.7 pg (27.0-33.0); MEAN CORPUSCULAR HGB CONC 33.5 g/dL (32.0-36.0); MEAN CORPUSCULAR VOLUME 88.7 fL (79-99); MONOCYTES % (AUTO) 6.8 % (3.0-13.0); NEUTROPHILS % (AUTO) 83.8 % (40.0-77.0); PLATELET COUNT (AUTO) 241 K/uL (130-400); RED BLOOD CELL COUNT(AUTO) 4.17 MIL/uL (4.00-5.50); RED CELL DISTRIBUTION WIDTH 13.2 % (11.0-15.5); WHITE BLOOD COUNT (AUTO) 13.3 K/uL (4.8-10.8)
[2020-02-19] MEDS: INSULIN HUMULIN R 100 UNIT/ML 3ML SQ SCH ×4 (05:36→21:17)
[2020-02-19 05:55] LABS: ALBUMIN 2.9 g/dL (3.5-5.0); BILIRUBIN,TOTAL 0.4 mg/dL (0.2-1.0); CREATININE 1.3 mg/dL (0.5-1.5); MAGNESIUM 2.1 mg/dL (1.80-2.40); PHOSPHORUS 3.3 mg/dL (2.5-4.9); POTASSIUM 4.4 mmol/L (3.5-5.1)
--- NOTE | 2020-02-19 07:00 | NUR ---
Pt satting 97% on venti-mask @50% and 15L; pt desat to 84% on 35% at 9L and had to be increased; pt is currently resting in bed; no distress noted. Evelio RN
[2020-02-19 08:03] VITALS: BP 134/74
[2020-02-19] MEDS: FAMOTIDINE/PF 20 MG/2 ML VIAL IV SCH (09:06)
[2020-02-19] MEDS: ENOXAPARIN SODIUM 60 MG/0.6 ML SQ SCH (09:07)
[2020-02-19] MEDS: DEXAMETHASONE 4 MG TAB PO SCH (09:07)
[2020-02-19 11:38] VITALS: BP 134/70
[2020-02-19] MEDS: AZITHROMYCIN 500MG+NS 250ML 250 ML IV SCH (13:38)
[2020-02-19] MEDS: CEFTRIAXONE SODIUM 1 GM IV SCH (14:04)
[2020-02-19 16:59] VITALS: BP 137/18
[2020-02-19 20:12] VITALS: BP 141/75
[2020-02-19] MEDS: BENZONATATE 100 MG CAPSULE PO PRN (21:03)
[2020-02-20 00:12] VITALS: BP 150/79
[2020-02-20 03:11] LABS: ABG BASE EXCESS 1.5 mmol/L (-2.0-3.0); ABG HCO3 24.7 mmol/L (21.0-28.0); ABG OXYGEN SATURATION 91.8 % (95.0-99.0); ABG PCO2 35 mmHg (32-45)
[2020-02-20 04:12] VITALS: BP 149/75
[2020-02-20 05:38] LABS: BASOPHILS % (AUTO) 0.2 % (0.0-5.0); HEMATOCRIT 36.5 % (36-48); LYMPHOCYTES % (AUTO) 9.8 % (21.0-51.0); MEAN CORPUSCULAR HEMOGLOBIN 29.5 pg (27.0-33.0); MEAN CORPUSCULAR HGB CONC 33.4 g/dL (32.0-36.0); MEAN CORPUSCULAR VOLUME 88.2 fL (79-99); MONOCYTES % (AUTO) 8.4 % (3.0-13.0); NEUTROPHILS % (AUTO) 80.5 % (40.0-77.0); PLATELET COUNT (AUTO) 249 K/uL (130-400); RED BLOOD CELL COUNT(AUTO) 4.14 MIL/uL (4.00-5.50); WHITE BLOOD COUNT (AUTO) 12.3 K/uL (4.8-10.8)
[2020-02-20 05:58] LABS: ALBUMIN 2.7 g/dL (3.5-5.0); BILIRUBIN,TOTAL 0.5 mg/dL (0.2-1.0); CREATININE 1.1 mg/dL (0.5-1.5); MAGNESIUM 1.8 mg/dL (1.80-2.40); PHOSPHORUS 3.4 mg/dL (2.5-4.9); POTASSIUM 4.1 mmol/L (3.5-5.1); TOTAL PROTEIN, SERUM 6.9 g/dL (6.0-8.3)
[2020-02-20] MEDS: INSULIN HUMULIN R 100 UNIT/ML 3ML SQ SCH ×4 (06:16→21:21)
[2020-02-20 08:00] VITALS: BP 133/71
[2020-02-20] MEDS: DEXAMETHASONE 4 MG TAB PO SCH (09:26)
[2020-02-20] MEDS: FAMOTIDINE/PF 20 MG/2 ML VIAL IV SCH (09:27)
[2020-02-20] MEDS: ENOXAPARIN SODIUM 60 MG/0.6 ML SQ SCH (09:27)
[2020-02-20 12:08] VITALS: BP 137/68
[2020-02-20 14:00] VITALS: BP 147/84
[2020-02-20] MEDS: AZITHROMYCIN 500MG+NS 250ML 250 ML IV SCH (14:31)
[2020-02-20] MEDS: CEFTRIAXONE SODIUM 1 GM IV SCH (14:32)
[2020-02-20 20:00] VITALS: BP 139/78
[2020-02-21] VITALS: BP 138/80
[2020-02-21 04:00] VITALS: BP 144/77
[2020-02-21 04:20] LABS: ABG BASE EXCESS 0.5 mmol/L (-2.0-3.0); ABG HCO3 23.4 mmol/L (21.0-28.0); ABG OXYGEN SATURATION 93.5 % (95.0-99.0); ABG PCO2 33 mmHg (32-45)
[2020-02-21 04:44] LABS: BASOPHILS % (AUTO) 0.1 % (0.0-5.0); EOSINOPHILS % (AUTO) 0.2 % (0.0-8.0); LYMPHOCYTES % (AUTO) 10.9 % (21.0-51.0); MEAN CORPUSCULAR HEMOGLOBIN 29.5 pg (27.0-33.0); MEAN CORPUSCULAR HGB CONC 33.9 g/dL (32.0-36.0); MONOCYTES % (AUTO) 9.8 % (3.0-13.0); NEUTROPHILS % (AUTO) 78.4 % (40.0-77.0); PLATELET COUNT (AUTO) 232 K/uL (130-400); RED BLOOD CELL COUNT(AUTO) 4.14 MIL/uL (4.00-5.50); RED CELL DISTRIBUTION WIDTH 12.7 % (11.0-15.5); WHITE BLOOD COUNT (AUTO) 11.3 K/uL (4.8-10.8)
[2020-02-21 05:18] LABS: ALBUMIN 2.7 g/dL (3.5-5.0); BILIRUBIN,TOTAL 0.5 mg/dL (0.2-1.0); CREATININE 1.1 mg/dL (0.5-1.5); MAGNESIUM 2.6 mg/dL (1.80-2.40); PHOSPHORUS 3.2 mg/dL (2.5-4.9); TOTAL PROTEIN, SERUM 6.8 g/dL (6.0-8.3)
[2020-02-21] MEDS: INSULIN HUMULIN R 100 UNIT/ML 3ML SQ SCH ×3 (05:58→18:18)
[2020-02-21 09:19] VITALS: BP 129/75
[2020-02-21] MEDS: DEXAMETHASONE 4 MG TAB PO SCH (09:34)
[2020-02-21] MEDS: FAMOTIDINE/PF 20 MG/2 ML VIAL IV SCH (09:34)
[2020-02-21] MEDS: ENOXAPARIN SODIUM 60 MG/0.6 ML SQ SCH (09:37)
[2020-02-21 12:32] VITALS: BP 118/66
[2020-02-21] MEDS: CEFTRIAXONE SODIUM 1 GM IV SCH (13:35)
[2020-02-21] MEDS: AZITHROMYCIN 500MG+NS 250ML 250 ML IV SCH (13:35)
[2020-02-21] MEDS ORDERED: DEXA6TAB PO (15:28)
--- NOTE | 2020-02-21 16:00 | NUR ---
matheus note spoke to pt and updated on plan for dc today, per md orders, informed she will need oxygen at home, as ordered by md clifford via [facility], and hospital will provide a loaner concentrator, and a portable tank to get her home. informed that oxygen has been ordered through [facility] with her own insurance and they are backlogged so they will process her oxygen order and deliver to her home when ready, at that time when she receives her own oxygen then she can return the concentrator loaner back to hospital. pt verbalizes understanding. Addendum: 02/21/20 at 1929 by NAVNEET LAWRENCE CM choice letter obtained and referral faxed clinical information to [facility], fax [phone].# [phone]
[2020-02-21 18:37] VITALS: BP 129/68
--- NOTE | 2020-02-21 19:11 | NUR ---
Patient cleared by primary team to dc home. DC information reviewed by pt and daughter, both parties verbalized understanding. Home O2 given to patient and will be returned this evening.
== END 2020-02-21 19:39 | disposition home or self-care (01) | DRG 177 ==
LOC: EDH 11:14 → EDHIP 13:59 → 4BH 21:56
PROVIDERS: ADMIT Internal Medicine Pulmonary Disease; ATTEND Internal Medicine Pulmonary Disease
DX: U07.1 COVID-19 (principal); J12.89 Other viral pneumonia; N39.0 Urinary tract infection, site not specified; E44.0 Moderate protein-calorie malnutrition; E87.5 Hyperkalemia; I10 Essential (primary) hypertension; E11.9 Type 2 diabetes mellitus without complications; Z79.02 Long term (current) use of antithrombotics/antiplatelets; Z88.0 Allergy status to penicillin; Z88.5 Allergy status to narcotic agent; Z79.899 Other long term (current) drug therapy; Z68.26 Body mass index [BMI] 26.0-26.9, adult
CPT/HCPCS: 36415; 36600; 71045; 80048; 80053; 81001; 82550; 82803; 82948; 83036; 83605; 83735; 83874; 84100; 84145; 84484; 85025; 85027; 85378; 85610; 85730; 86900; 86901; 87040; 87077; 87088; 87186; 87426; 93005; 93970; 94760; 97039; 99291; G0378; J0456; J0696; J1100; J1650; J1815; J1956; J3490; J8540

== ENCOUNTER → 2020-08-18 | Outpatient (CLI) | payer MEDICARE ==
[~2020-08-18] MED LIST changes: +DEXA6TAB PO; -HYDR-4457 PO; -INSU300I3 SQ; +LEVO5TAB13 PO; -PLETAL PO; -TRAM50TA4 PO
== END | disposition home or self-care (01) ==
LOC: SHCH 07:40
PROVIDERS: ATTEND Internal Medicine Cardiovascular Disease
DX: I71.4 Abdominal aortic aneurysm, without rupture (principal); I73.9 Peripheral vascular disease, unspecified; Z95.820 Peripheral vascular angioplasty status with implants and grafts
CPT/HCPCS: 93925; 93978

== ENCOUNTER 2020-09-02 10:23 | Observation (INO) | payer MEDICARE ==
[~2020-09-02] VITALS: Ht 149.9 cm; Wt 60.9 kg
[2020-09-02] MEDS ORDERED: DiphenhydrAMINE HCL 50 MG/ML VIAL ONE ×2 (12:00→21:43)
[2020-09-02] MEDS ORDERED: METHYLPREDNISOLONE SOD SUCC 125MG/2ML VIAL ONE (12:01)
[2020-09-02] MEDS ORDERED: FAMOTIDINE/PF 20 MG/2 ML VIAL IV ONE ×2 (12:01→21:44)
[2020-09-02 12:04] LABS: BASOPHILS % (AUTO) 0.1 % (0.0-5.0); HEMATOCRIT 38.9 % (36-48); LYMPHOCYTES % (AUTO) 5.5 % (21.0-51.0); MEAN CORPUSCULAR HEMOGLOBIN 30.3 pg (27.0-33.0); MEAN CORPUSCULAR HGB CONC 33.7 g/dL (32.0-36.0); MEAN CORPUSCULAR VOLUME 89.8 fL (79-99); MONOCYTES % (AUTO) 2.2 % (3.0-13.0); NEUTROPHILS % (AUTO) 91.7 % (40.0-77.0); PLATELET COUNT (AUTO) 242 K/uL (130-400); RED BLOOD CELL COUNT(AUTO) 4.33 MIL/uL (4.00-5.50); RED CELL DISTRIBUTION WIDTH 12.5 % (11.0-15.5); WHITE BLOOD COUNT (AUTO) 15.7 K/uL (4.8-10.8)
[2020-09-02 12:17] LABS: CREATININE 1.4 mg/dL (0.5-1.5); INR 0.97 (0.85-1.15); POTASSIUM 5.3 mmol/L (3.5-5.1); PROTHROMBIN TIME 10.6 SEC (9.6-11.6)
[2020-09-02 12:18] LABS: PARTIAL THROMBOPLASTIN TIME 24.3 SEC (26.3-35.5)
[2020-09-02] MEDS ORDERED: INSULIN HUMULIN R 100 UNIT/ML 3ML ONE ×3 (12:24→21:44)
[2020-09-02] MEDS ORDERED: DEXTROSE 50%-WATER 50 ML DISP.SYRIN IV PRN (13:00)
[2020-09-02] MEDS ORDERED: LABETALOL HCL 5 MG/ML 20ML VIAL IV PRN (13:00)
[2020-09-02] MEDS ORDERED: MAGNESIUM 2GM PREMIX 50ML 50 ML IV PRN (13:00)
[2020-09-02] MEDS ORDERED: POTASSIUM CHLORIDE 20 MEQ ERTAB PO PRN (13:00)
[2020-09-02] MEDS ORDERED: POTASSIUM CHLORIDE 20MEQ/100ML 100 ML IV PRN (13:00)
[2020-09-02] MEDS ORDERED: ACETAMINOPHEN 325 MG TAB PO PRN (13:00)
[2020-09-02] MEDS ORDERED: POTASSIUM CHLORIDE 10% ELIXIR 20 MEQ/15 ML UDCUP PO PRN (13:00)
[2020-09-02] MEDS ORDERED: ONDANSETRON HCL 4 MG/2 ML VIAL IVP PRN (13:00)
[2020-09-02] MEDS ORDERED: GLUCAGON 1MG KIT 1 MG ML IM PRN (13:00)
[2020-09-02] MEDS ORDERED: LIDOCAINE HCL-MPF 1% 2ML VIAL IV PRN (13:00)
[2020-09-02] MEDS: INSULIN HUMULIN R 100 UNIT/ML 3ML SQ SCH ×2 (16:30→21:00)
[2020-09-02] MEDS: DiphenhydrAMINE HCL 50 MG/ML VIAL IV SCH (20:00)
[2020-09-02] MEDS: METHYLPREDNISOLONE SOD SUCC 125MG/2ML VIAL IVP SCH (20:00)
[2020-09-02] MEDS: FAMOTIDINE/PF 20 MG/2 ML VIAL IV SCH (21:00)
[2020-09-02] MEDS ORDERED: METHYLPREDNISOLONE SOD SUCC 40MG/ML 1ML ONE (21:43)
[2020-09-02 22:05] VITALS: BP 137/50
[2020-09-02] MEDS ORDERED: INSU200I4 SQ (23:11)
[2020-09-02] MEDS ORDERED: BENA1TAB18 PO (23:11)
[2020-09-02] MEDS ORDERED: ASCO100031 PO (23:11)
[2020-09-02] MEDS ORDERED: ACYC400T PO (23:11)
[2020-09-02] MEDS ORDERED: AZEL23SP2 NS (23:11)
[2020-09-02] MEDS ORDERED: GUAI600T35 PO (23:11)
[2020-09-02] MEDS ORDERED: CALC-866 PO (23:11)
[2020-09-02] MEDS ORDERED: BENZ-51 PO (23:11)
[2020-09-02] MEDS ORDERED: AEC81 PO (23:11)
[2020-09-02] MEDS ORDERED: CLON0.1T PO (23:11)
[2020-09-02] MEDS ORDERED: LEVO25TA54 PO (23:11)
[2020-09-02] MEDS ORDERED: CALC-691 PO (23:11)
[2020-09-02] MEDS ORDERED: AZIT250T9 PO (23:11)
[2020-09-02] MEDS ORDERED: AZIT500T4 PO (23:11)
[2020-09-02] MEDS ORDERED: MAGN200T4 PO (23:11)
[2020-09-02] MEDS ORDERED: FLUT1DIS4 IH (23:11)
[2020-09-02] MEDS ORDERED: ALBU2.5V2 IH (23:11)
[2020-09-02] MEDS ORDERED: PRAV10TA39 PO (23:11)
[2020-09-02] MEDS ORDERED: ESOM20CA39 PO (23:11)
[2020-09-02] MEDS ORDERED: FA/M1TAB32 PO (23:11)
[2020-09-03] VITALS: BP 124/55
[2020-09-03 01:08] LABS: APPEARANCE,URINE Clear (CLEAR); BILIRUBIN,URINE Negative (NEGATIVE); COLOR,URINE Yellow (YELLOW); GLUCOSE, URINE (UA) Negative (NEGATIVE); KETONES,URINE Negative (NEGATIVE); LEUKOCYTE ESTERASE ,URINE Trace (NEGATIVE); NITRATE,URINE Negative (NEGATIVE); OCCULT BLOOD,URINE Negative (NEGATIVE); PROTEIN,URINE Negative (NEGATIVE); UROBILINOGEN,URINE 0.2 mg/dL (0.2-1.0)
[2020-09-03 01:27] LABS: BACTERIA,URINE Rare /HPF (None Seen); MUCUS,URINE Few LPF (None Seen); RBC,URINE None Seen /HPF (0-1); SQUAMOUS EPITHELIAL CELL,UR Few /HPF (0-2); YEAST,URINE BUDDING Moderate /HPF (None Seen)
[2020-09-03] MEDS: DiphenhydrAMINE HCL 50 MG/ML VIAL IV SCH ×2 (03:25→14:21)
[2020-09-03] MEDS: METHYLPREDNISOLONE SOD SUCC 125MG/2ML VIAL IVP SCH ×2 (03:25→14:21)
[2020-09-03 04:00] VITALS: BP 109/67
[2020-09-03 05:17] LABS: BASOPHILS % (AUTO) 0.2 % (0.0-5.0); HEMATOCRIT 37.3 % (36-48); LYMPHOCYTES % (AUTO) 6.5 % (21.0-51.0); MEAN CORPUSCULAR HEMOGLOBIN 29.9 pg (27.0-33.0); MEAN CORPUSCULAR HGB CONC 33.8 g/dL (32.0-36.0); MEAN CORPUSCULAR VOLUME 88.6 fL (79-99); MONOCYTES % (AUTO) 0.9 % (3.0-13.0); NEUTROPHILS % (AUTO) 91.7 % (40.0-77.0); PLATELET COUNT (AUTO) 256 K/uL (130-400); RED BLOOD CELL COUNT(AUTO) 4.21 MIL/uL (4.00-5.50); RED CELL DISTRIBUTION WIDTH 12.6 % (11.0-15.5); WHITE BLOOD COUNT (AUTO) 21.8 K/uL (4.8-10.8)
[2020-09-03 05:46] LABS: CREATININE 1.3 mg/dL (0.5-1.5); POTASSIUM 3.9 mmol/L (3.5-5.1)
[2020-09-03] MEDS: INSULIN HUMULIN R 100 UNIT/ML 3ML SQ SCH ×2 (06:10→11:30)
[2020-09-03 07:30] VITALS: BP 135/64
[2020-09-03] MEDS: FAMOTIDINE/PF 20 MG/2 ML VIAL IV SCH (09:59)
[2020-09-03 11:00] VITALS: BP 140/56
[2020-09-03] MEDS ORDERED: PRED20TA3 PO (14:12)
[2020-09-03] MEDS ORDERED: AMLO10TA4 PO (14:12)
[2020-09-03] MEDS ORDERED: FAMO-136 PO (14:12)
== END 2020-09-03 15:55 | disposition home or self-care (01) ==
LOC: EDH 10:23 → EDHIP 12:59 → 3DH 20:51
PROVIDERS: ADMIT Internal Medicine; ATTEND Internal Medicine
DX: T78.3XXA Angioneurotic edema, initial encounter (principal); Z20.822 Contact with and (suspected) exposure to COVID-19; E11.51 Type 2 diabetes mellitus with diabetic peripheral angiopathy without gangrene; E78.5 Hyperlipidemia, unspecified; I10 Essential (primary) hypertension; E11.65 Type 2 diabetes mellitus with hyperglycemia; E87.5 Hyperkalemia; Z86.16 Personal history of COVID-19; Z87.891 Personal history of nicotine dependence; Z90.49 Acquired absence of other specified parts of digestive tract; Z90.710 Acquired absence of both cervix and uterus; Z79.4 Long term (current) use of insulin; Z79.02 Long term (current) use of antithrombotics/antiplatelets; Z79.82 Long term (current) use of aspirin; Z79.899 Other long term (current) drug therapy; Z88.0 Allergy status to penicillin; Z88.5 Allergy status to narcotic agent; X58.XXXA Exposure to other specified factors, initial encounter; Y93.89 Activity, other specified; Y92.89 Other specified places as the place of occurrence of the external cause
CPT/HCPCS: 36415 ×2; 71045; 80048 ×2; 81001; 82948 ×3; 85025 ×2; 85610; 85730; 87426; 96374; 96375; 96376; 99284; G0378 ×27; J1200 ×4; J1815 ×3; J2920; J2930 ×3; J3490 ×3; U0003